=== PATIENT | female | born 1965 | race Caucasian/White ===

== ENCOUNTER 2021-01-21 19:02 | Emergency (ER) | payer OTHER ==
[~2021-01-21] VITALS: Ht 170.2 cm; Wt 120.2 kg
[2021-01-21] MEDS ORDERED: PROTONIX40 M2 PO (19:15)
[2021-01-21] MEDS ORDERED: KEPPRA 500 MG500 MG PO (19:15)
[2021-01-21] MEDS ORDERED: CIPROFLOXIN HC2.5 M1 OTIC ×3 (19:33→20:35)
[2021-01-21] MEDS ORDERED: NORCO5 PO ×4 (19:33→20:35)
[2021-01-21] MEDS ORDERED: CEPHALEXIN500 MG PO ×3 (19:33→20:35)
[2021-01-21 19:39] VITALS: BP 154/87
== END 2021-01-21 19:41 | disposition home or self-care (01) ==
LOC: M.ERS 19:02
DX: H66.93 Otitis media, unspecified, bilateral (principal); H60.93 Unspecified otitis externa, bilateral; Z79.899 Other long term (current) drug therapy; Z88.6 Allergy status to analgesic agent; Z88.5 Allergy status to narcotic agent; Z88.7 Allergy status to serum and vaccine

== ENCOUNTER 2021-01-23 15:32 | Emergency (ER) | payer OTHER ==
[~2021-01-23] VITALS: Ht 170.2 cm; Wt 120.2 kg
[~2021-01-23 15:32] MED LIST: CEPHALEXIN500 MG PO; CIPROFLOXIN HC2.5 M1 OTIC; KEPPRA 500 MG500 MG PO; NORCO5 PO; PROTONIX40 M2 PO
[2021-01-23] MEDS ORDERED: CIPROFLOX-DEXA7.5 ML OTIC ×2 (17:47→17:50)
[2021-01-23 17:52] VITALS: BP 134/85
== END 2021-01-23 17:53 | disposition home or self-care (01) ==
LOC: M.ERS 15:32
DX: H60.93 Unspecified otitis externa, bilateral (principal); Z88.7 Allergy status to serum and vaccine; Z88.5 Allergy status to narcotic agent; Z88.8 Allergy status to other drugs, medicaments and biological substances; Z79.899 Other long term (current) drug therapy; Z98.890 Other specified postprocedural states; Z90.710 Acquired absence of both cervix and uterus